=== PATIENT | male | born 1990 | race Caucasian/White ===

== ENCOUNTER 2016-03-18 12:30 | Emergency (ER) | payer BC ==
[2016-03-18 12:47] VITALS: BMI 15.3
[2016-03-18] MEDS ORDERED: ACETAMINOPHEN 1000 MG/100 ML VIAL (NON FORMULARY) IVPB ONE (13:05)
[2016-03-18] MEDS ORDERED: SODIUM CHLORIDE 1,000 ML IV SCH ×2 (13:15→17:00)
[2016-03-18] MEDS ORDERED: ACETAMINOPHEN INJECTION 100 ML IVPB ONE (13:24)
--- NOTE | 2016-03-18 13:42 | PDOC ---
History of Present Illness <Vishal Johnson - Last Filed: 03/18/16 16:57> - History of Present Illness Initial Comments: 03/18/16 13:36 26-year-old male with a past medical history of Crohn's disease, which was diagnosed by a pediatric continuity writer 7 years ago He was treated with something for 6 months, but doesn't know the name of the medication, and has been off of medications for 6-1/2 years He states that he tried a celiac diet, and was okay until about 2 years ago For the past 2 years he's had intermittent episodes of abdominal pain and fever , but they resolve spontaneously, and he has not sought medical attention for this He is complaining of a few days of fever with abdominal pain and initially some urinary symptoms, and he saw Dr. Singer in the office on Monday, and was given Macrobid, however his UA was negative, his urine culture was negative, and a kidney ultrasound was negative Patient states that for the past few days his symptoms has worsened, and he has had no bowel movement for 3 days He is complaining of increasingly severe abdominal pain, with a temperature up to 103 He started vomiting last night, and vomited multiple episodes, without blood or coffee grounds He states his last bowel movement was without blood He is complaining of severe diffuse abdominal pain, more in his left lower quadrant He states he is still having some slight urinary symptoms, but more predominantly abdominal pain at this time He denies any flank pain He was sent down from Dr. Singer's office for further evaluation He has not seen a continuity writer, or been on any medication, since he saw his pediatric continuity writer 7 years ago He does admit to weight loss Remainder the review of systems is negative <Kassandra Cantrell - Last Filed: 03/20/16 08:44> - General Chief Complaint: Pain, Acute Stated Complaint: ABDOMINAL PAIN,CONSTIPATION X 3 DAYS Time Seen by Provider: 03/18/16 12:49 Past History <Vishal Johnson - Last Filed: 03/18/16 16:57> - Past Medical History GI Disorders: Yes (CROHN'S) - Immunization History Td Vaccination: Yes Immunization Up to Date: No - Psycho/Social/Smoking Cessation Hx Anxiety: No Suicidal Ideation: No Smoking Status: No Smoking History: Never smoked Number of Cigarettes Smoked Daily: 0 Hx Alcohol Use: No Drug/Substance Use Hx: No Substance Use Type: None <JerezBertoHumphreyKassandra - Last Filed: 03/20/16 08:44> - Past Medical History Allergies/Adverse Reactions: Allergies Allergy/AdvReac Type Severity Reaction Status Date / Time wheat Allergy Verified 03/18/16 12:32 soy AdvReac Intermediate Nausea Verified 03/18/16 12:38 Home Medications: Ambulatory Orders No Home Medications 0 dose .ROUTE UTDICT 04/22/12 Review of Systems - Review of Systems Able to Perform ROS?: Yes Comments:: 03/18/16 13:39 12 point review of systems is as per history of present illness and otherwise negative <JerezBertoKassandra Yin - Last Filed: 03/20/16 08:44> *Physical Exam - Vital Signs Last Vital Signs Temp Pulse Resp BP Pulse Ox 99.6 F 104 H 18 97/64 98 03/18/16 14:46 03/18/16 14:46 03/18/16 14:46 03/18/16 12:31 03/18/16 14:46 <Vishal Johnson - Last Filed: 03/18/16 16:57> - Vital Signs Last Vital Signs Temp Pulse Resp BP Pulse Ox 101.2 F H 130 H 16 97/64 98 03/18/16 12:31 03/18/16 12:31 03/18/16 12:31 03/18/16 12:31 03/18/16 12:31 - Physical Exam Comments: 03/18/16 13:39 Physical exam Last Vital Signs Temp Pulse Resp BP Pulse Ox 101.2 F H 130 H 16 97/64 98 03/18/16 12:31 03/18/16 12:31 03/18/16 12:31 03/18/16 12:31 03/18/16 12:31 GENERAL: The patient is awake, alert, cachectic, and dehydrated appearing HEAD: Normal with no signs of trauma. EYES: Sclera anicteric ENT: Mucous membranes dry NECK: Normal range of motion, supple LUNGS: Breath sounds equal, clear to auscultation bilaterally. No wheezes, and no crackles. HEART: Tachycardic Regular rate and rhythm, normal S1 and S2 without murmur, rub or gallop. ABDOMEN: The abdomen is distended with hypoactive to absent bowel sounds, and almost rigid There is diffuse tenderness to palpation, especially in the left lower quadrant , with voluntary guarding and+/-rebound There is no CVA tenderness RECTAL: Heme Negative stool, no obvious fistulas EXTREMITIES: Normal range of motion, no edema. No clubbing or cyanosis. No cords, erythema, or tenderness. NEUROLOGICAL: Cranial nerves II through XII grossly intact. Normal speech, normal gait. PSYCH: Normal mood, normal affect. SKIN: Warm, Dry, <Kassandra Cantrell - Last Filed: 03/20/16 08:44> ED Treatment Course - LABORATORY CBC & Chemistry Diagram: 03/18/16 01:40 03/18/16 01:40 - ADDITIONAL ORDERS Additional order review: Laboratory Results 03/18/16 03/18/16 13:54 01:40 Sodium 129 L Potassium 4.1 Chloride 92 L Carbon Dioxide 25 Anion Gap 12 BUN 14 Creatinine 1.3 D Creat Clearance w eGFR > 60 Random Glucose 116 H Calcium 7.7 L Magnesium 1.5 L Total Bilirubin 1.8 H D AST 20 ALT 10 D Alkaline Phosphatase 22 L Total Protein 5.7 L Albumin 2.9 L Lipase 37 Stool Occult Blood Negative 03/18/16 01:40 RBC 4.63 MCV 83.9 MCHC 32.8 RDW 11.8 L D MPV 7.6 - Medications Given in the ED: ED Medications Discontinued Medications Generic Name Dose Route Start Last Admin Trade Name Jefersonq PRN Reason Stop Dose Admin Acetaminophen 1,000 mg 03/18/16 13:05 03/18/16 13:53 Ofirmev Injection - IVPB 03/18/16 13:06 1,000 mg ONCE ONE Administration Levofloxacin 100 mls @ 100 mls/hr 03/18/16 13:43 03/18/16 15:00 Levaquin 500 Mg Premixed Ivpb - IVPB 03/18/16 14:42 100 mls/hr ONCE ONE Administration Metronidazole 100 mls @ 100 mls/hr 03/18/16 13:44 03/18/16 14:01 Flagyl 500mg Premixed Ivpb - IVPB 03/18/16 14:43 100 mls/hr ONCE ONE Administration <Vishal Johnson - Last Filed: 03/18/16 16:57> - LABORATORY CBC & Chemistry Diagram: 03/18/16 01:40 03/18/16 01:40 - RADIOLOGY Radiology Studies Ordered: Category Date Time Status ABDOMEN FLAT & UPRIGHT [RAD] Stat Radiology 03/18/16 13:32 Ordered <Kassandra Cantrell - Last Filed: 03/20/16 08:44> Medical Decision Making - Medical Decision Making 03/18/16 13:42 26-year-old male with possible acute surgical abdomen, severe dehydration, cachexia, and possible untreated Crohn's episodes for the past few years Will start with hydration, IV antibiotics, IV Tylenol, STAT CT scan of the abdomen and pelvis 03/18/16 13:54 SIGN OUT Case discussed in detail with oncoming Emergency Physician including history, physical exam and ancillary studies. Oncoming Emergency Physician has assumed care for the patient and will complete the evaluation and treatment. CRISTIAN to Dr Khan at 2p awaiting all studies <Kassandra Cantrell - Last Filed: 03/20/16 08:44> *DC/Admit/Observation/Transfer <Vishal Johnson - Last Filed: 03/18/16 16:57> <Kassandra Cantrell - Last Filed: 03/20/16 08:44> Diagnosis at time of Disposition: Intestinal perforation - Discharge Dispostion Disposition: TRANSFER ACUTE CARE/OTHER HOSP Condition at time of disposition: Guarded
[2016-03-18] MEDS ORDERED: LEVOFLOXACIN 500 MG IVPB 100 ML IVPB ONE ×2 (13:43→13:56)
[2016-03-18] MEDS ORDERED: METRONIDAZOLE 500 MG PREMIXED 100 ML IVPB ONE ×2 (13:44→13:56)
[2016-03-18 13:59] LABS: MCH 27.5 pg (25.7-33.7); MCHC 32.8 g/dl (32.0-35.9); MEAN CELL VOLUME 83.9 fl (80-96); MEAN PLT VOLUME 7.6 fl (7.5-11.1); PLATELET COUNT 276 K/MM3 (134-434); RDW 11.8 % (11.9-15.9)
[2016-03-18 14:16] LABS: ALBUMIN 2.9 g/dl (3.5-5.0); ALK PHOS 22 U/L (32-92); ANION GAP 12 (8-16); BILIRUBIN,TOTAL 1.8 mg/dl (0.2-1.0); CALCIUM 7.7 mg/dl (8.4-10.2); CO2 25 mmol/L (22-28); CREATININE 1.3 mg/dl (0.6-1.3); GLUCOSE,RANDOM 116 mg/dl (74-106); MAGNESIUM 1.5 mg/dL (1.8-2.4); SGOT/AST 20 U/L (10-42); SGPT/ALT 10 U/L (10-40); TOT PROT 5.7 g/dl (6.4-8.3)
[2016-03-18] MEDS ORDERED: SODIUM CHLORIDE 0.9% 1000 ML INFUS.BAG IV ONE (15:42)
[2016-03-18] MEDS ORDERED: PIPERACILLIN/TAZOB 4.5 GM 4.5 GM in DEXTROSE 5%-WATER 100 ML IVPB ONE (16:26)
[2016-03-18] MEDS ORDERED: PIPERACILLIN/TAZOBACTAM 4.5 GM VIAL IVPB ONE (16:27)
[2016-03-18 16:49] LABS: PH,URINE 5.5 (4.5-8); URINE APPEARANCE Clear; URINE BILIRUBIN Negative (NEGATIVE); URINE BLOOD Negative (NEGATIVE); URINE GLUCOSE (UA) Negative (NEGATIVE); URINE KETONE Trace (NEGATIVE); URINE LEUK ESTERASE Negative (NEGATIVE); URINE NITRITE Negative (NEGATIVE); URINE UROBILINOGEN 1.0 E.U/dl (0.2-1.0)
[2016-03-18 16:51] LABS: URINE PROTEIN 1+ (NEGATIVE)
[2016-03-18 16:52] LABS: URINE COLOR YELLOW
--- NOTE | 2016-03-18 16:54 | PDOC ---
*Physical Exam - Vital Signs Last Vital Signs Temp Pulse Resp BP Pulse Ox 99.6 F 104 H 18 92/57 98 03/18/16 14:46 03/18/16 14:46 03/18/16 14:46 03/18/16 15:13 03/18/16 14:46 <Vishal Johnson - Last Filed: 03/18/16 18:58> - Vital Signs Last Vital Signs Temp Pulse Resp BP Pulse Ox 99.6 F 104 H 18 92/57 98 03/18/16 14:46 03/18/16 14:46 03/18/16 14:46 03/18/16 15:13 03/18/16 14:46 03/18/16 19:11 Last Vital Signs Temp Pulse Resp BP Pulse Ox 98.6 F 100 H 18 91/56 99 03/18/16 17:16 03/18/16 17:16 03/18/16 17:16 03/18/16 17:16 03/18/16 17:14 <Kameron Khan - Last Filed: 03/18/16 19:16> ED Treatment Course - LABORATORY CBC & Chemistry Diagram: 03/18/16 01:40 03/18/16 01:40 - ADDITIONAL ORDERS Additional order review: Laboratory Results 03/18/16 03/18/16 03/18/16 Unknown 16:14 13:54 Sodium Potassium Chloride Carbon Dioxide Anion Gap BUN Creatinine Creat Clearance w eGFR Random Glucose Lactic Acid 1.483 Calcium Magnesium Total Bilirubin AST ALT Alkaline Phosphatase Total Protein Albumin Lipase Urine Color Yellow Urine Appearance Clear Urine pH 5.5 D Ur Specific [place] <= 1.005 Urine Protein 1+ H Urine Glucose (UA) Negative Urine Ketones Trace Urine Blood Negative Urine Nitrite Negative Urine Bilirubin Negative Urine Urobilinogen 1.0 e.u/dl Ur Leukocyte Esterase Negative Stool Occult Blood Negative 03/18/16 01:40 Sodium 129 L Potassium 4.1 Chloride 92 L Carbon Dioxide 25 Anion Gap 12 BUN 14 Creatinine 1.3 D Creat Clearance w eGFR > 60 Random Glucose 116 H Lactic Acid Calcium 7.7 L Magnesium 1.5 L Total Bilirubin 1.8 H D AST 20 ALT 10 D Alkaline Phosphatase 22 L Total Protein 5.7 L Albumin 2.9 L Lipase 37 Urine Color Urine Appearance Urine pH Ur Specific [place] Urine Protein Urine Glucose (UA) Urine Ketones Urine Blood Urine Nitrite Urine Bilirubin Urine Urobilinogen Ur Leukocyte Esterase Stool Occult Blood 03/18/16 01:40 RBC 4.63 MCV 83.9 MCHC 32.8 RDW 11.8 L D MPV 7.6 - Medications Given in the ED: ED Medications Discontinued Medications Generic Name Dose Route Start Last Admin Trade Name Deborah PRN Reason Stop Dose Admin Acetaminophen 1,000 mg 03/18/16 13:05 03/18/16 13:53 Ofirmev Injection - IVPB 03/18/16 13:06 1,000 mg ONCE ONE Administration Levofloxacin 100 mls @ 100 mls/hr 03/18/16 13:43 03/18/16 15:00 Levaquin 500 Mg Premixed Ivpb - IVPB 03/18/16 14:42 100 mls/hr ONCE ONE Administration Metronidazole 100 mls @ 100 mls/hr 03/18/16 13:44 03/18/16 14:01 Flagyl 500mg Premixed Ivpb - IVPB 03/18/16 14:43 100 mls/hr ONCE ONE Administration Piperacillin Sod/Tazobactam 100 mls @ 200 mls/hr 03/18/16 16:26 03/18/16 16:44 Sod 4.5 gm/ Dextrose IVPB 03/18/16 16:55 200 mls/hr ONCE ONE Administration Sodium Chloride 1,000 ml 03/18/16 15:42 03/18/16 16:13 Normal Saline - IV 03/18/16 15:43 1,000 ml ONCE ONE Administration <Vishal Johnson - Last Filed: 03/18/16 18:58> - LABORATORY CBC & Chemistry Diagram: 03/18/16 01:40 03/18/16 01:40 - ADDITIONAL ORDERS Additional order review: Laboratory Results 03/18/16 03/18/16 03/18/16 Unknown 13:54 01:40 Sodium 129 L Potassium 4.1 Chloride 92 L Carbon Dioxide 25 Anion Gap 12 BUN 14 Creatinine 1.3 D Creat Clearance w eGFR > 60 Random Glucose 116 H Lactic Acid 1.483 Calcium 7.7 L Magnesium 1.5 L Total Bilirubin 1.8 H D AST 20 ALT 10 D Alkaline Phosphatase 22 L Total Protein 5.7 L Albumin 2.9 L Lipase 37 Stool Occult Blood Negative 03/18/16 01:40 RBC 4.63 MCV 83.9 MCHC 32.8 RDW 11.8 L D MPV 7.6 - Medications Given in the ED: ED Medications Discontinued Medications Generic Name Dose Route Start Last Admin Trade Name Deborah PRN Reason Stop Dose Admin Acetaminophen 1,000 mg 03/18/16 13:05 03/18/16 13:53 Ofirmev Injection - IVPB 03/18/16 13:06 1,000 mg ONCE ONE Administration Levofloxacin 100 mls @ 100 mls/hr 03/18/16 13:43 03/18/16 15:00 Levaquin 500 Mg Premixed Ivpb - IVPB 03/18/16 14:42 100 mls/hr ONCE ONE Administration Metronidazole 100 mls @ 100 mls/hr 03/18/16 13:44 03/18/16 14:01 Flagyl 500mg Premixed Ivpb - IVPB 03/18/16 14:43 100 mls/hr ONCE ONE Administration Sodium Chloride 1,000 ml 03/18/16 15:42 03/18/16 16:13 Normal Saline - IV 03/18/16 15:43 1,000 ml ONCE ONE Administration <Kameron Khan - Last Filed: 03/18/16 19:16> Medical Decision Making - Medical Decision Making 03/18/16 15:06 [phone] to acquire the surgical PA' s number for an emergency surgery consult. 03/18/16 15:08 Dr. Grigsby consulted states Chron's disease with micro perforations is complicated and recommended transfer to tertiary facility. 03/18/16 15:15 [facility] called for transfer, awaiting call back. 03/18/16 16:01 Second call to [facility], still awaiting call back. 03/18/16 16:24 Third call to [facility], still awaiting call back. 03/18/16 16:40 [facility] called back. Case discussed. Dr. Arango accepted case. Patient will be transferred. 03/18/16 17:50 Emergency transportation present for transfer however, [facility] called back to cancel acceptance of the transfer. They state that their OR is not available. 03/18/16 17:53 [facility] called for transfer. Case discussed with Dr. Beavers who request surgical consult at our facility prior to acceptance. 03/18/16 18:40 Dr. Grigsby consulted he is in the OR at [facility] with an unstable patient. 03/18/16 18:58: [facility] called. Case discussed Dr. Beavers accepts the case. <Vishal Johnson - Last Filed: 03/18/16 18:58> - Medical Decision Making 03/18/16 16:49 Patient is a 26-year-old man who was diagnosed with Crohns disease by colonoscopy with biopsy approximately 6 years ago. He was also told he may have celiac disease. He managed his illness with gluten-free diet and very careful nutritional attention which was helpful for many years. More recently he has been having increasing abdominal pain, with fever and severe abdominal pain over the last 3 days. His primary physician prescribed Macrobid a few days ago for urinary symptoms. He comes in now with fever, and vomiting since yesterday, and diffuse abdominal pain, worse in the left lower quadrant. Patient was endorsed to me by Dr. Jerez, with CT scan pending. CT scan shows perforation with transition zone in the small bowel anterior to the right psoas muscle. Laboratory studies notable for white blood cell count of 8.0. Patient with perforation, was discussed with general surgery here, who feels that given his Crohn's disease and extensive inflammation, he is best served by care at a specialty hospital. [facility] contacted, general surgeon Dr. Arango accepted the patient in transfer to [facility]. Dr. Arango recommended that surgery will likely be needed today. Patient be transferred as soon as possible. [facility] was contacted for transport. Patient's parents are here with him and will accompany him to [facility]. <Kameron Khan - Last Filed: 03/18/16 19:16> *DC/Admit/Observation/Transfer - Attestations Scribe Attestion: 03/18/16 16:58 Documentation prepared by Vishal Johnson, acting as medical concierge for Kameron Khan MD. <Vishal Johnson - Last Filed: 03/18/16 18:58> - Discharge Dispostion Admit: No - Transfer to Acute Care Facility Receiving Facility: [facility]. (Dr. Arango accepting surgeon) Accepting Physician:: Dr. Beavers accepting surgeon Transfer comment: 03/18/16 16:53 Patient is stable for transport. He received 2 L of IV fluid and triple antibiotics including Levaquin, Flagyl, and Zosyn. 03/18/16 19:12 Patient was initially accepted in transfer to [facility] by Dr. Arango. Dr. Arango later called back and was unable to accept the transfer as initially planned. He stated there is no OR time available at [facility]. Dr. Grigsby, pre sales technical consultant surgeon contacted. Dr. Grigsby is in the operating room at the [facility] and cannot come to [place] to see the patient. [facility] contacted and Dr. Beavers initially requested for Dr. Grigsby to accept the patient, but after recontacting Dr. Grigsby who continues to be in the operating room with an unstable patient and unavailable to come to [facility], Dr. Beavers was called a second time and accepted the transfer. - Attestations Physician Attestion: 03/18/16 16:53 The scribe's documentation has been prepared under my direction and personally reviewed by me in its entirety. I have confirmed that the note above accurately reflects all work, treatment, procedures, and medical decision- making performed by me. 03/18/16 19:15 <Kameron Khan - Last Filed: 03/18/16 19:16> Diagnosis at time of Disposition: Intestinal perforation - Discharge Dispostion Disposition: TRANSFER ACUTE CARE/OTHER HOSP Condition at time of disposition: Guarded
[2016-03-18] MEDS ORDERED: morphine CARPU-JECT 4 MG/1 ML DISP.SYRIN IVPUSH ONE (17:00)
[2016-03-18] MEDS ORDERED: morphine CARPU-JECT 10 MG/1 ML DISP.SYRIN ONE (17:01)
[2016-03-18 17:15] LABS: URINE BACTERIA FEW /hpf (NEGATIVE); URINE RBC 0-2 /hpf (0-3); URINE WBC 0-1 (3-5)
[2016-03-18 19:38] VITALS: BP 92/63; PULSE 99
[2016-03-18 19:39] VITALS: TEMP 98.8
== END 2016-03-18 19:49 | disposition short-term general hospital (02) ==
LOC: FER 12:30
PROC: 3E033NZ Introduction of Analgesics, Hypnotics, Sedatives into Peripheral Vein, Percutaneous Approach (ICD-10-PCS; principal; 2016-03-18)
PROC: 3E03329 Introduction of Other Anti-infective into Peripheral Vein, Percutaneous Approach (ICD-10-PCS; 2016-03-18)
PROC: 3E0337Z Introduction of Electrolytic and Water Balance Substance into Peripheral Vein, Percutaneous Approach (ICD-10-PCS; 2016-03-18)
DX: K63.1 Perforation of intestine (nontraumatic) (principal); K50.90 Crohn's disease, unspecified, without complications
CPT/HCPCS: 36415; 74176-TC; 80053; 81003; 81015; 82272; 83605; 83690; 83735; 85027; 87040; 87086; 99285-25